=== PATIENT | female | born 1990 | race Two or more races ===

== ENCOUNTER → 2019-04-19 | Outpatient (CLI) | payer OTHER ==
[~2019-04-19] MED LIST: ALBU90I; ALBU90OI INH; AZIT250 PO; Benadryl 50 mg50 MG PO; CODGUAEL PO; CRUTCH3 USE; CYCL10 PO; ESCI20 PO; FAMO20 PO; FLUO10 PO; HYDACE5 PO; IBUP600 PO; IBUP800 PO; MUSCLE RELAXER; NAPR500 PO; PROM25 PO; Percocet 10-321 EACH PO; Prilosec20 MG PO; RANI150 PO; RXCYCL10 PO; RXHYD5325 PO; RXHYDACE PO; SULTRIDS PO; Tizanidine HCl2 MG PO; Vistaril50 MG PO
[2019-04-19 18:07] LABS: BASOPHILS ABSOLUTE AUTO 0.02 K/mm3 (0.00-0.23); BASOPHILS PERCENT AUTO 0 % (0-2); EOSINOPHILS ABSOLUTE AUTO 0.11 K/mm3 (0.00-0.68); EOSINOPHILS PERCENT AUTO 2 % (0-6); Hematocrit 38.4 % (33.0-51.0); IMMATURE GRAN ABSOLUTE AUTO 0.01 K/mm3 (0.00-0.10); IMMATURE GRAN PERCENT AUTO 0 % (0-1); LYMPHOCYTES ABSOLUTE AUTO 2.04 K/mm3 (0.84-5.20); LYMPHOCYTES PERCENT AUTO 30 % (21-46); MONOCYTES ABSOLUTE AUTO 0.47 K/mm3 (0.16-1.47); MONOCYTES PERCENT AUTO 7 % (4-13); Mean Corpuscular HGB 30.7 pg (26.0-34.0); Mean Corpuscular HGB Conc 33.9 g/dL (31.5-36.5); Mean Corpuscular Volume 91 fL (80-100); Mean Platelet Volume 9.5 fL (9.1-12.4); NEUTROPHILS ABSOLUTE AUTO 4.18 K/mm3 (1.96-9.15); NEUTROPHILS PERCENT AUTO 61 % (41-73); Platelet Count 298 K/mm3 (150-400); RDW Coefficient Variation 12.8 % (11.7-14.2); RDW Standard Deviation 42.4 fL (35.1-46.3); Red Blood Cell Count 4.23 M/mm3 (3.80-5.20); White Blood Cell Count 6.83 K/mm3 (4.00-11.30)
[2019-04-19 18:19] LABS: Alanine Aminotransfer (ALT/SGP 28 U/L (12-78); Albumin, Blood 3.8 g/dL (3.4-5.0); Albumin/Globulin Ratio 1.4 (0.8-1.8); Alk Phos 64 U/L (50-136); Anion Gap 5 mmol/L (6-16); Aspartate Aminotrans (AST/SGOT 29 U/L (12-37); Bilirubin, Total 0.4 mg/dL (0.1-1.0); Blood Urea Nitrogen 26 mg/dL (8-24); Bun/Creatinine Ratio 56.4 (12.0-20.0); CO2, Blood 24 mmol/L (21-32); Calcium, Blood 8.6 mg/dL (8.5-10.1); Chloride, Blood 110 mmol/L (98-108); Creatinine, Blood 0.46 mg/dL (0.40-1.00); Globulin, Blood 2.8 g/dL (2.2-4.0); Glomerular Filtration Rate >60 (60-); Glucose, Blood 90 mg/dL (70-99); Potassium, Blood 3.7 mmol/L (3.5-5.5); Sodium, Blood 139 mmol/L (136-145); Total Protein, Blood 6.6 g/dL (6.4-8.2)
== END | disposition home or self-care (01) ==
LOC: LAB SHORT 17:13 → LAB EV 17:13
PROVIDERS: Physician Assistant
DX: M32.9 Systemic lupus erythematosus, unspecified (principal)
CPT/HCPCS: 80053; 85025; 85651

== ENCOUNTER 2019-06-19 22:29 | Emergency (ER) | payer OTHER ==
[~2019-06-19] VITALS: Ht 160 cm; Wt 92.1 kg
[~2019-06-19 22:29] MED LIST changes: -Tizanidine HCl2 MG PO; -Vistaril50 MG PO
[2019-06-19] MEDS ORDERED: Tizanidine HCl2 MG PO (23:14)
[2019-06-19] MEDS ORDERED: Vistaril50 MG PO (23:14)
[2019-06-19] MEDS ORDERED: NAPR500 PO (23:15)
== END 2019-06-20 00:12 | disposition home or self-care (01) ==
LOC: ER 22:29
DX: G56.01 Carpal tunnel syndrome, right upper limb (principal); M62.830 Muscle spasm of back; R51 Headache; F17.210 Nicotine dependence, cigarettes, uncomplicated; Z79.899 Other long term (current) drug therapy
CPT/HCPCS: 96372; 99283-25; J1100; J1885; J2765; Q0163

== ENCOUNTER 2019-09-24 07:51 | Emergency (ER) | payer OTHER ==
[~2019-09-24] VITALS: Ht 154.9 cm; Wt 94.8 kg
[~2019-09-24 07:51] MED LIST changes: +Tizanidine HCl2 MG PO; +Vistaril50 MG PO
[2019-09-24] MEDS ORDERED: ONDA4 PO (08:21)
[2019-09-24] MEDS ORDERED: OMEPRAZOLE20 MG PO (08:21)
[2019-09-24] MEDS ORDERED: FAMO20 PO (08:21)
[2019-09-24] MEDS ORDERED: CYCL10 PO (08:22)
== END 2019-09-24 08:50 | disposition home or self-care (01) ==
LOC: ER 07:51
DX: K21.0 Gastro-esophageal reflux disease with esophagitis (principal); Z79.899 Other long term (current) drug therapy
CPT/HCPCS: 87338; 99283

== ENCOUNTER 2019-11-12 11:56 | Day surgery (SDC) | payer OTHER ==
[~2019-11-12 11:56] MED LIST changes: +OMEPRAZOLE20 MG PO; +ONDA4 PO
== END 2019-11-12 13:25 | disposition home or self-care (01) ==
LOC: ORSCSDS 11:56
PROVIDERS: Internal Medicine Gastroenterology
PROC: 0DB68ZX Excision of Stomach, Via Natural or Artificial Opening Endoscopic, Diagnostic (ICD-10-PCS; principal; 2019-11-12 13:30)
PROC: 0D757ZZ Dilation of Esophagus, Via Natural or Artificial Opening (ICD-10-PCS; principal; 2019-11-12 13:30)
PROC: 0DB58ZX Excision of Esophagus, Via Natural or Artificial Opening Endoscopic, Diagnostic (ICD-10-PCS; principal; 2019-11-12 13:30)
DX: R10.13 Epigastric pain (principal); R13.10 Dysphagia, unspecified; R11.2 Nausea with vomiting, unspecified; K29.70 Gastritis, unspecified, without bleeding; E66.01 Morbid (severe) obesity due to excess calories; Z68.41 Body mass index [BMI] 40.0-44.9, adult; Z87.891 Personal history of nicotine dependence; Z79.899 Other long term (current) drug therapy
CPT/HCPCS: 88305; 88342; J2704; J7120